=== PATIENT | male | born 1985 | race Caucasian/White ===

== ENCOUNTER 2020-12-22 07:54 | Emergency (ER) | payer OTHER ==
[~2020-12-22] VITALS: Ht 175.3 cm; Wt 61.2 kg
[2020-12-22] MEDS ORDERED: KETO10TA2 PO (11:02)
[2020-12-22] MEDS ORDERED: AIRBORNE EFFER1 EACH PO (11:02)
[2020-12-22] MEDS ORDERED: PROMETH-CODEIN 65 ML PO (11:04)
[2020-12-22] MEDS ORDERED: TESSALON PERLE100 M1 PO (11:04)
== END 2020-12-22 12:37 | disposition home or self-care (01) ==
LOC: ER 07:54
DX: J06.9 Acute upper respiratory infection, unspecified (principal); M94.0 Chondrocostal junction syndrome [Tietze]; Z20.822 Contact with and (suspected) exposure to COVID-19